=== PATIENT | male | born 1940 | race Caucasian/White ===

== ENCOUNTER → 2016-07-15 | Outpatient (CLI) | payer OTHER ==
[~2016-07-15] MED LIST: ACETAMINOPHEN &1 TA1 PO; ALBUTEROL0.09 MG/A1 INH; AMLODIPINE BESYL5 MG PO; ANALGESIC TP; ANUSOL-HC25 MG R; ASPI-COR81 MG PO; ATIVAN1 MG PO; BACTRIM DS 8001 TA1 PO; BENGAY ARTHRITI1 CRE T; CIPRO500 MG PO; CLARITIN10 MG PO; DAYPRO600 M1 PO; DONEPEZIL HYDRO10 MG PO; ELIMITE5% T; FLAGYL500 MG PO; GLIPIZIDE XL5 M1 PO; HCTZ/LISINOPRIL1 TA1 PO; HYDR1000 IM; INDOCIN50 MG PO; KEFLEX500 MG PO; LEVAQUIN750 MG PO; LEVITRA20 MG PO; LISINOPRIL/HCTZ1 TA3 PO; METFORMIN500 MG PO; MUCINEX600 MG PO; NAPROXEN500 M1 PO; NASAREL1 EA NAS; NEURONTIN300 MG PO; OMEPRAZOLE20 MG PO; PANTOPRAZOLE SO20 MG PO; PLAVIX75 MG PO; PRAVASTATIN SOD40 MG PO; PREDNISONE10 MG PO; PREDNISONE20 M1 PO; SIMVASTATIN40 MG PO; SYNTHROID PO; Synthroid,Levo50 MCG PO; TAMSULOSIN HCL0.4 MG PO; VENTOLIN H0.09 MG/AC INH; VIAGRA100 MG PO; VICODIN 5/500 505 MG PO; VICODIN 500 MG-1 TAB PO; VICODIN ES 7501 TAB PO; ZITHROMAX Z PA250 MG PO; ZITHROMAX250 MG PO; ZOCOR40 MG PO; ZOFRAN4 MG PO
[2016-07-15 11:09] LABS: BUN 19 mg/dl (7-24); EST GLOM FILT AFRICAN AMERICAN > 60 ml/min
== END | disposition home or self-care (01) ==
LOC: LAB 10:44 → CT 11:00
PROVIDERS: Family Medicine
DX: R91.1 Solitary pulmonary nodule (principal); E11.9 Type 2 diabetes mellitus without complications; Z87.891 Personal history of nicotine dependence

== ENCOUNTER → 2017-05-20 | Outpatient (CLI) | payer OTHER | END | disposition home or self-care (01) | LOC: RAD 09:37 | DX: M25.561 Pain in right knee (principal) ==

== ENCOUNTER → 2017-07-27 | Outpatient (CLI) | payer OTHER | END | disposition home or self-care (01) | LOC: LAB 13:39 | DX: R19.7 Diarrhea, unspecified (principal) ==

== ENCOUNTER 2017-09-08 14:45 | Emergency (ER) | payer OTHER ==
[~2017-09-08] VITALS: Wt 90.7 kg
[2017-09-08] MEDS ORDERED: SERTRALINE HYDR50 MG PO (14:55)
[2017-09-08] MEDS ORDERED: DONEPEZIL HCL10 MG PO (14:56)
[2017-09-08] MEDS ORDERED: ZESTORETIC 20-1 EACH PO (14:56)
[2017-09-08] MEDS ORDERED: CARDIOVID PLUS1 EACH PO (14:57)
[2017-09-08] MEDS ORDERED: REFRESH OPTIVE1 EAC1 OP (14:57)
[2017-09-08] MEDS ORDERED: ALPRAZOLAM1 M2 PO (15:21)
[2017-09-08] MEDS ORDERED: NARCAN4 MG NAS (15:21)
[2017-09-08 15:24] LABS: BILIRUBIN NEGATIVE (NEGATIVE); BLOOD NEGATIVE (NEGATIVE); CLARITY CLEAR (CLEAR); COLOR YELLOW (YELLOW); GLUCOSE NEGATIVE (NEGATIVE); KETONE NEGATIVE (NEGATIVE); LEUKO ESTERASE NEGATIVE (NEGATIVE); NITRITE NEGATIVE (NEGATIVE); SPECIFIC GRAVITY >= 1.030 (1.005-1.030); UROBILINOGEN 0.2 E.U./dl (0.2-1.0)
[2017-09-08 15:53] LABS: BASO % 0.4 % (0.0-1.0); EOS # 0.3 10*3/uL (0.0-0.4); EOS % 3.2 % (1.0-4.0); HEMATOCRIT 42.9 % (42.0-52.0); HEMOGLOBIN 14.1 g/dl (14.0-18.0); LYMPH # 2.1 10*3/uL (1.3-4.4); LYMPH % 25.4 % (27.0-41.0); MEAN CELL VOLUME 90.3 fl (80.0-94.0); MEAN CORPUSCULAR HGB 29.7 pg (27.0-31.0); MEAN CORPUSCULAR HGB CONC 32.9 g/dl (33.0-37.0); MEAN PLATELET VOLUME 9.8 fl (9.6-12.3); MONO # 0.6 10*3/uL (0.1-1.0); MONO % 6.8 % (3.0-9.0); NEUT # 5.2 10*3/uL (2.3-7.9); NEUT % 63.8 % (47.0-73.0); PLATELET COUNT AUTOMATED 193 10*3/uL (130-400); RED BLOOD COUNT 4.75 10*6/uL (4.50-5.90); RED CELL DISTRI WIDTH 14.7 % (0-14.5); WHITE BLOOD COUNT 8.1 10*3/uL (4.8-10.8)
[2017-09-08 16:04] LABS: ACT PARTIAL THROMBO TIME 23.9 SECONDS (20.8-31.5)
[2017-09-08 16:09] LABS: ALKALINE PHOSPHATASE 75 U/L (45-117); BUN 18 mg/dl (7-24); CHLORIDE 110 mmol/L (98-107); CREATININE 0.85 mg/dL (0.70-1.30); LIPASE 175 U/L (73-393); POTASSIUM 4.1 mmol/L (3.5-5.1); SGOT/AST 29 IU/L (3-35); SGPT/ALT 51 U/L (12-78); SODIUM 141 mmol/L (136-145); TOTAL PROTEIN 7.3 gm/dL (6.4-8.2); TROPONIN I < 0.015 ng/ml (<0.045)
[2017-09-08 20:02] VITALS: BP 127/51
== END 2017-09-08 20:32 | disposition home or self-care (01) ==
LOC: ED 14:45
PROVIDERS: Emergency Medicine
DX: G45.9 Transient cerebral ischemic attack, unspecified (principal); J44.9 Chronic obstructive pulmonary disease, unspecified; Z88.6 Allergy status to analgesic agent; Z79.899 Other long term (current) drug therapy

== ENCOUNTER → 2017-09-09 | Outpatient (CLI) | payer OTHER ==
[~2017-09-09] MED LIST changes: +ALPRAZOLAM1 M2 PO; +CARDIOVID PLUS1 EACH PO; +DONEPEZIL HCL10 MG PO; +LEVOXYL150 MCG PO; +NARCAN4 MG NAS; +REFRESH OPTIVE1 EAC1 OP; +SERTRALINE HYDR50 MG PO; +ZESTORETIC 20-1 EACH PO
== END | disposition home or self-care (01) ==
LOC: MRI 11:00
DX: G31.9 Degenerative disease of nervous system, unspecified (principal); I69.911 Memory deficit following unspecified cerebrovascular disease; H53.2 Diplopia; R53.1 Weakness

== ENCOUNTER 2017-10-01 11:10 | Emergency (ER) | payer OTHER ==
[~2017-10-01] VITALS: Ht 167.6 cm; Wt 91.2 kg
[~2017-10-01 11:10] MED LIST changes: -LEVOXYL150 MCG PO
[2017-10-01] MEDS ORDERED: LEVOXYL150 MCG PO (11:25)
[2017-10-01 11:27] LABS: BASO % 0.1 % (0.0-1.0); EOS # 0.2 10*3/uL (0.0-0.4); EOS % 2.8 % (1.0-4.0); HEMOGLOBIN 12.9 g/dl (14.0-18.0); LYMPH # 1.8 10*3/uL (1.3-4.4); LYMPH % 26.5 % (27.0-41.0); MEAN CORPUSCULAR HGB CONC 32.3 g/dl (33.0-37.0); MEAN PLATELET VOLUME 10.1 fl (9.6-12.3); MONO # 0.5 10*3/uL (0.1-1.0); MONO % 6.6 % (3.0-9.0); NEUT # 4.4 10*3/uL (2.3-7.9); NEUT % 63.6 % (47.0-73.0); PLATELET COUNT AUTOMATED 160 10*3/uL (130-400); RED CELL DISTRI WIDTH 15.5 % (0-14.5); WHITE BLOOD COUNT 6.9 10*3/uL (4.8-10.8)
[2017-10-01 11:43] VITALS: BP 139/64
[2017-10-01 11:43] LABS: ALBUMIN 3.9 gm/dl (3.1-4.5); ALKALINE PHOSPHATASE 70 U/L (45-117); BUN 19 mg/dl (7-24); CHLORIDE 107 mmol/L (98-107); CREATININE 1.04 mg/dL (0.70-1.30); POTASSIUM 3.9 mmol/L (3.5-5.1); SGOT/AST 21 IU/L (3-35); SGPT/ALT 34 U/L (12-78); SODIUM 141 mmol/L (136-145); TOTAL PROTEIN 7.1 gm/dL (6.4-8.2)
[2017-10-01 11:49] LABS: TROPONIN I < 0.015 ng/ml (<0.045)
== END 2017-10-01 12:36 | disposition home or self-care (01) ==
LOC: ED 11:10
PROVIDERS: Emergency Medicine
DX: R00.1 Bradycardia, unspecified (principal); Z86.73 Personal history of transient ischemic attack (TIA), and cerebral infarction without residual deficits; Z98.890 Other specified postprocedural states; Z79.899 Other long term (current) drug therapy; Z88.5 Allergy status to narcotic agent

== ENCOUNTER 2017-10-09 19:16 | Emergency (ER) | payer BC, OTHER ==
[~2017-10-09] VITALS: Ht 167.6 cm; Wt 91.2 kg
[~2017-10-09 19:16] MED LIST changes: +LEVOXYL150 MCG PO
[2017-10-09 19:18] VITALS: BP 176/71
== END 2017-10-09 20:44 | disposition home or self-care (01) ==
LOC: ED 19:16
DX: S96.911A Strain of unspecified muscle and tendon at ankle and foot level, right foot, initial encounter (principal); M77.31 Calcaneal spur, right foot; Z98.890 Other specified postprocedural states; Z79.899 Other long term (current) drug therapy; Z88.5 Allergy status to narcotic agent; V29.3XXA Motorcycle rider (driver) (passenger) injured in unspecified nontraffic accident, initial encounter; Y93.55 Activity, bike riding; Y92.413 State road as the place of occurrence of the external cause; Y99.9 Unspecified external cause status

== ENCOUNTER 2017-11-02 22:30 | Inpatient (IN) | payer OTHER ==
[~2017-11-02] VITALS: Ht 171.4 cm; Wt 91.2 kg
--- NOTE | ~2017-11-02 | PR ---
[place], [place] PROGRESS NOTE NAME: MEGHANA CLINTON UNIT #: [id number] ROOM: 402 DOCTOR: CHRISTAL GILL MD BIRTHDATE: [birth year] DOS: 11/04/2017 SUBJECTIVE: The patient was seen in the Cardiology Department today 11/04/2017 prior to his stress test. He is a 77-year-old man, typically followed by the [facility]. He has been known to have bradycardia and recently was referred for [facility]. Despite his bradycardia he has not had symptoms of lightheadedness or syncope. He was noted at the local [facility] yesterday to have severe hypertension and some chest discomfort. He was therefore sent to the hospital and we were asked to assist in his assessment. Overnight, he has felt well. He denies any chest discomfort and is breathing easily. Serial troponin levels have all been normal. A TSH level was normal at 2.43. Review of his monitor strips show that he does have sinus bradycardia with a heart rate of about 40-50, but no pauses. PHYSICAL EXAMINATION: VITAL SIGNS: Today, his pulse is 40 and regular, blood pressure is 196/66. He is afebrile. He weighs 91.2 kg and has a body mass index of 31.1. NECK: Supple. He has no jugular distention. Carotids are full. I heard no bruits. He had no neck or supraclavicular masses. LUNGS: Respirations were unlabored. His chest was clear to auscultation and percussion. HEART: Had ____, but slow rhythm. He had a fourth heart sound, but no third heart sound. ABDOMEN: Soft and normally active. EXTREMITIES: Showed no edema. IMPRESSION: 1. Hypertensive urgency. 2. Sinus bradycardia, most likely due to a conduction system disorder, despite the degree of his bradycardia he appears to be asymptomatic. 3. Atypical chest discomfort. PLAN: We will proceed with a pharmacologic stress test and echocardiogram today. Further recommendations will depend upon the results of his studies. In the interim, we should work to improve blood pressure control, but avoid rate slowing medications. I thank the hospitalist physicians for asking our advice regarding his care. [place], [place] PROGRESS NOTE NAME: MEGHANA CLINTON UNIT #: [id number] ROOM: 402 DOCTOR: CHRISTAL GILL MD BIRTHDATE: [birth year] CHRISTAL GILL MD CM:PNTRANS [id number] CHRISTAL GILL MD 11/04/17 1215 interface
--- NOTE | ~2017-11-02 | EKG ---
[place], [place] ELECTROCARDIOGRAM REPORT NAME: MEGHANA CLINTON UNIT #: [id number] ROOM: 402 DOCTOR: RODRIGUEZ DRAFT REPORT BIRTHDATE: [address] 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
--- NOTE | ~2017-11-02 | EKG ---
[place], [place] ELECTROCARDIOGRAM REPORT NAME: MEGHANA CLINTON UNIT #: [id number] ROOM: 402 DOCTOR: RODRIGUEZ DRAFT REPORT BIRTHDATE: [birth year] [facility] Test Date: 2017-11-02 Test Time: 22:41:42 Pat Name: MEGHANA CLINTON Department: Room: Gender: [employer]: : 1940 Requested By: TRINA LEO Order Number: [id number] Reading MD: Prosper Jordan MD Measurements Intervals [place] Rate: 39 P: 69 UT: 172 QRS: 33 QRSD: 102 T: 66 QT: 524 QTc: 423 Interpretive Statements Sinus bradycardia RSR' in V1 or V2, right VCD or RVH No change from earlier ECG this date. Electronically Signed On 11-03-2017 20:46:14 PDT by Prosper Jordan MD CM:EKGRPT:ELECTROCARDIOGRAM REPORT 45 TRINA PETERS DRAFT REPORT TRINA LEO DO
--- NOTE | ~2017-11-02 | EKG ---
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 Electronically Signed On 11-03-2017 4:29:42 PDT by Prosper Jordan MD CM:EKGRPT:ELECTROCARDIOGRAM REPORT 0429 TRINA PETERS DRAFT REPORT TRINA LEO DO
--- NOTE | ~2017-11-02 | CON ---
[place], [place] REPORT OF CONSULTATION [id number] UNIT #: [id number] ROOM: 402 DOCTOR: CHRISTAL GILL MD BIRTHDATE: [birth year] DOS: 11/04/2017 ADDENDUM I saw the patient on 11/03/[address] Internal Medicine resident Dr. Lisandro Simon. He is a 77-year-old man who presented to the Emergency Room with chest pain and bradycardia. He is typically followed for his cardiac issues by the [facility] and his workup with them is in process. I independently evaluated and confirmed appropriate portions of the patient's history and examination and discussed my findings with the patient as well as with Dr. Simon. I reviewed her documentation from 11/03/2017 and I agree with the assessment and plan as she has outlined it. IMPRESSION: 1. Atypical chest pain. 2. Bradycardia, likely due to an underlying conduction system disorder. This appears to be asymptomatic. 3. Hypertensive urgency. 4. Chronic obstructive pulmonary disease. PLAN: We will evaluate the patient's cardiac structures with an echocardiogram and plan for a pharmacologic stress test within the next 24 hours. We have requested records from the [facility]. Further recommendations will depend upon the results of testing. We thank the hospitalist physicians for asking our advice regarding his care. CHRISTAL GILL MD CM:CONSTR:REPORT OF CONSULTATION 1101 11/05/17 1818 interface
[2017-11-02 22:35] VITALS: BP 181/74
[2017-11-02 23:04] VITALS: BP 182/70
[2017-11-02 23:28] VITALS: BP 160/68
[2017-11-02 23:40] LABS: BASO % 0.3 % (0.0-1.0); EOS # 0.3 10*3/uL (0.0-0.4); EOS % 3.1 % (1.0-4.0); HEMATOCRIT 37.1 % (42.0-52.0); HEMOGLOBIN 12.2 g/dl (14.0-18.0); LYMPH # 2.4 10*3/uL (1.3-4.4); LYMPH % 30.3 % (27.0-41.0); MEAN CELL VOLUME 91.4 fl (80.0-94.0); MEAN CORPUSCULAR HGB CONC 32.9 g/dl (33.0-37.0); MONO # 0.6 10*3/uL (0.1-1.0); MONO % 7.3 % (3.0-9.0); NEUT # 4.7 10*3/uL (2.3-7.9); NEUT % 58.6 % (47.0-73.0); PLATELET COUNT AUTOMATED 139 10*3/uL (130-400); RED BLOOD COUNT 4.06 10*6/uL (4.50-5.90); RED CELL DISTRI WIDTH 14.3 % (0-14.5)
[2017-11-02 23:49] LABS: ACT PARTIAL THROMBO TIME 23.5 SECONDS (20.8-31.5)
[2017-11-02 23:57] LABS: ALBUMIN 3.9 gm/dl (3.1-4.5); ALKALINE PHOSPHATASE 81 U/L (45-117); BUN 17 mg/dl (7-24); CHLORIDE 107 mmol/L (98-107); CREATININE 1.07 mg/dL (0.70-1.30); POTASSIUM 3.6 mmol/L (3.5-5.1); SGOT/AST 20 IU/L (3-35); SGPT/ALT 33 U/L (12-78); SODIUM 140 mmol/L (136-145); TOTAL PROTEIN 7.1 gm/dL (6.4-8.2)
[2017-11-03] VITALS (9 sets, daily range): BP systolic 142–196; BP diastolic 50–88
[2017-11-03 00:01] LABS: TROPONIN I < 0.015 ng/ml (<0.045)
[2017-11-03 05:25] LABS: ALBUMIN 3.8 gm/dl (3.1-4.5); BUN 16 mg/dl (7-24); CHLORIDE 106 mmol/L (98-107); CHOLESTEROL 124 mg/dL (<200); CREATININE 1.02 mg/dL (0.70-1.30); HDL CHOLESTEROL 25 mg/dl (40-60); LDL CHOLESTEROL 62 mg/dL (9-159); PHOSPHOROUS 3.3 mg/dL (2.5-4.9); POTASSIUM 3.5 mmol/L (3.5-5.1); SODIUM 141 mmol/L (136-145); TRIGLYCERIDES 183 mg/dl (<150); VLDL CHOLESTEROL 37 mg/dL (6-40)
[2017-11-03 06:02] LABS: BASO % 0.3 % (0.0-1.0); EOS # 0.2 10*3/uL (0.0-0.4); EOS % 3.4 % (1.0-4.0); HEMATOCRIT 37.2 % (42.0-52.0); HEMOGLOBIN 12.1 g/dl (14.0-18.0); LYMPH # 1.9 10*3/uL (1.3-4.4); LYMPH % 29.9 % (27.0-41.0); MEAN CELL VOLUME 92.1 fl (80.0-94.0); MEAN CORPUSCULAR HGB CONC 32.5 g/dl (33.0-37.0); MEAN PLATELET VOLUME 11.4 fl (9.6-12.3); MONO # 0.4 10*3/uL (0.1-1.0); MONO % 6.8 % (3.0-9.0); NEUT # 3.8 10*3/uL (2.3-7.9); NEUT % 59.3 % (47.0-73.0); PLATELET COUNT AUTOMATED 134 10*3/uL (130-400); RED BLOOD COUNT 4.04 10*6/uL (4.50-5.90); RED CELL DISTRI WIDTH 14.3 % (0-14.5); WHITE BLOOD COUNT 6.5 10*3/uL (4.8-10.8)
[2017-11-03 07:22] LABS: VITAMIN D, 25-HYDROXY 26.8 ng/mL (30-100)
[2017-11-04] VITALS (7 sets, daily range): BP systolic 162–196; BP diastolic 58–78
[2017-11-04 08:02] LABS: BUN 20 mg/dl (7-24); CHLORIDE 106 mmol/L (98-107); POTASSIUM 4.1 mmol/L (3.5-5.1); SODIUM 143 mmol/L (136-145)
[2017-11-04 08:04] LABS: CREATININE 1.01 mg/dL (0.70-1.30); PHOSPHOROUS 2.9 mg/dL (2.5-4.9)
[2017-11-04] MEDS ORDERED: VITAMIN D-32000 UNIT PO (15:53)
== END 2017-11-04 17:26 | disposition home or self-care (01) | DRG 392 ==
LOC: ED 22:30 → 4E 11-03 00:08 → EDHOLD 11-03 00:08 → 4E 11-03 00:26
PROVIDERS: Internal Medicine; Student in an Organized Health Care Education/Training Program
DX: K21.9 Gastro-esophageal reflux disease without esophagitis (principal); E11.8 Type 2 diabetes mellitus with unspecified complications; J44.9 Chronic obstructive pulmonary disease, unspecified; I16.1 Hypertensive emergency; R00.1 Bradycardia, unspecified; E83.41 Hypermagnesemia; E66.01 Morbid (severe) obesity due to excess calories; E83.51 Hypocalcemia; D50.9 Iron deficiency anemia, unspecified; E78.5 Hyperlipidemia, unspecified; E53.8 Deficiency of other specified B group vitamins; F41.9 Anxiety disorder, unspecified; I10 Essential (primary) hypertension; I16.0 Hypertensive urgency; N40.0 Benign prostatic hyperplasia without lower urinary tract symptoms; E03.9 Hypothyroidism, unspecified; Z79.84 Long term (current) use of oral hypoglycemic drugs; Z88.5 Allergy status to narcotic agent; Z91.09 Other allergy status, other than to drugs and biological substances; Z82.3 Family history of stroke; Z80.9 Family history of malignant neoplasm, unspecified; Z86.73 Personal history of transient ischemic attack (TIA), and cerebral infarction without residual deficits; Z83.6 Family history of other diseases of the respiratory system; Z79.899 Other long term (current) drug therapy; Z68.31 Body mass index [BMI] 31.0-31.9, adult; Z79.82 Long term (current) use of aspirin

== ENCOUNTER → 2018-05-27 | Outpatient (CLI) | payer OTHER ==
[~2018-05-27] MED LIST changes: +VITAMIN D-32000 UNIT PO
== END | disposition home or self-care (01) ==
LOC: CT 13:00
DX: M19.071 Primary osteoarthritis, right ankle and foot (principal); M79.89 Other specified soft tissue disorders

== ENCOUNTER → 2019-05-17 | Outpatient (CLI) | payer OTHER ==
[2019-05-17 16:26] LABS: BASO % 0.4 % (0.0-1.0); EOS # 0.2 10*3/uL (0.0-0.4); HEMATOCRIT 39.6 % (42.0-52.0); HEMOGLOBIN 13.4 g/dl (14.0-18.0); LYMPH # 2.1 10*3/uL (1.3-4.4); LYMPH % 27.9 % (27.0-41.0); MEAN CELL VOLUME 92.1 fl (80.0-94.0); MEAN CORPUSCULAR HGB 31.2 pg (27.0-31.0); MEAN CORPUSCULAR HGB CONC 33.8 g/dl (33.0-37.0); MEAN PLATELET VOLUME 10.3 fl (9.6-12.3); MONO # 0.5 10*3/uL (0.1-1.0); MONO % 5.9 % (3.0-9.0); NEUT # 4.7 10*3/uL (2.3-7.9); NEUT % 62.4 % (47.0-73.0); PLATELET COUNT AUTOMATED 237 10*3/uL (130-400); RED CELL DISTRI WIDTH 15.4 % (0-14.5); RETICULOCYTE % 3.02 % (0.50-2.50); WHITE BLOOD COUNT 7.6 10*3/uL (4.8-10.8)
[2019-05-17 16:44] LABS: BILIRUBIN NEGATIVE (NEGATIVE); BLOOD NEGATIVE (NEGATIVE); CLARITY CLEAR (CLEAR); COLOR YELLOW (YELLOW); GLUCOSE NEGATIVE (NEGATIVE); KETONE NEGATIVE (NEGATIVE); LEUKO ESTERASE NEGATIVE (NEGATIVE); NITRITE NEGATIVE (NEGATIVE); SPECIFIC GRAVITY 1.025 (1.005-1.030); UROBILINOGEN 0.2 E.U./dl (0.2-1.0)
[2019-05-17 16:45] LABS: BACTERIA TRACE
[2019-05-17 16:54] LABS: ALBUMIN 4.2 gm/dl (3.1-4.5); ALKALINE PHOSPHATASE 87 U/L (45-117); BUN 19 mg/dl (7-24); CHLORIDE 107 mmol/L (98-107); CHOLESTEROL 193 mg/dL (<200); CREATININE 1.17 mg/dL (0.70-1.30); GAMMA GLUTAMYL TRANSPEPTIDASE 24 U/L (15-85); HDL CHOLESTEROL 21 mg/dl (40-60); IRON 77 ug/dL (65-175); POTASSIUM 3.8 mmol/L (3.5-5.1); SGOT/AST 37 IU/L (3-35); SODIUM 138 mmol/L (136-145); TOTAL IRON BINDING CAPACITY 377 ug/dl (250-450); TRIGLYCERIDES 858 mg/dl (<150)
[2019-05-17 17:02] LABS: URIC ACID 5.2 mg/dL (3.5-7.2)
[2019-05-17 17:05] LABS: VITAMIN D, 25-HYDROXY 25.1 ng/mL (30-100)
[2019-05-17 17:06] LABS: FERRITIN 79.9 ng/mL (22.0-322.0)
[2019-05-17 17:07] LABS: SGPT/ALT 46 U/L (12-78); TOTAL PROTEIN 7.4 gm/dL (6.4-8.2)
[2019-05-18 08:10] LABS: RHEUMATOID ARTHRITIS FACTOR 10.2 IU/mL (0.0-13.9)
[2019-05-18 12:06] LABS: ANTI-DSDNA ANTIBODIES 096339 4 IU/mL (0-9)
== END ==
LOC: LAB 15:43
PROVIDERS: Family Medicine
DX: R79.89 Other specified abnormal findings of blood chemistry (principal); E55.9 Vitamin D deficiency, unspecified; Z79.899 Other long term (current) drug therapy; Z12.5 Encounter for screening for malignant neoplasm of prostate

== ENCOUNTER → 2019-06-13 | Outpatient (CLI) | payer OTHER ==
[2019-06-13 07:57] LABS: BASO % 0.4 % (0.0-1.0); EOS # 0.3 10*3/uL (0.0-0.4); EOS % 4.4 % (1.0-4.0); HEMATOCRIT 41.4 % (42.0-52.0); HEMOGLOBIN 13.2 g/dl (14.0-18.0); LYMPH # 2.1 10*3/uL (1.3-4.4); LYMPH % 29.1 % (27.0-41.0); MEAN CELL VOLUME 94.1 fl (80.0-94.0); MEAN CORPUSCULAR HGB CONC 31.9 g/dl (33.0-37.0); MEAN PLATELET VOLUME 10.6 fl (9.6-12.3); MONO # 0.6 10*3/uL (0.1-1.0); MONO % 7.9 % (3.0-9.0); NEUT # 4.3 10*3/uL (2.3-7.9); NEUT % 57.8 % (47.0-73.0); PLATELET COUNT AUTOMATED 182 10*3/uL (130-400); RED CELL DISTRI WIDTH 14.7 % (0-14.5); WHITE BLOOD COUNT 7.4 10*3/uL (4.8-10.8)
[2019-06-13 08:07] LABS: ACT PARTIAL THROMBO TIME 26.5 SECONDS (20.0-32.1)
[2019-06-13 08:34] LABS: CREATININE 1.42 mg/dL (0.70-1.30); POTASSIUM 3.5 mmol/L (3.5-5.1); TOTAL PROTEIN 7.3 gm/dL (6.4-8.2)
[2019-06-13 18:10] LABS: BILIRUBIN NEGATIVE (NEGATIVE); BLOOD NEGATIVE (NEGATIVE); CLARITY CLEAR (CLEAR); COLOR YELLOW (YELLOW); GLUCOSE NEGATIVE (NEGATIVE); KETONE NEGATIVE (NEGATIVE); LEUKO ESTERASE NEGATIVE (NEGATIVE); NITRITE NEGATIVE (NEGATIVE); UROBILINOGEN 0.2 E.U./dl (0.2-1.0)
[2019-06-13 18:16] LABS: BACTERIA TRACE; EPITHELIAL CELLS 0-2; RBC 0-2 rbc/hpf (0-2); WBC 0-2 wbc/hpf (0-5)
== END | disposition home or self-care (01) ==
LOC: CARD 02:26 → LAB 02:26 → CARD 08:30
PROVIDERS: Internal Medicine Cardiovascular Disease; Urology
DX: I20.9 Angina pectoris, unspecified (principal); E11.9 Type 2 diabetes mellitus without complications; R06.02 Shortness of breath; R53.81 Other malaise

== ENCOUNTER 2019-10-29 15:25 | Inpatient (IN) | payer MEDICARE ==
[~2019-10-29] VITALS: Ht 170.2 cm; Wt 95.3 kg
[2019-10-29 15:34] VITALS: BP 89/51
[2019-10-29] MEDS ORDERED: NEURONTIN300 MG PO (15:44)
[2019-10-29] MEDS ORDERED: PRAVASTATIN SOD80 MG PO (15:44)
[2019-10-29] MEDS ORDERED: B121000 MCG/1 IM (15:45)
[2019-10-29] MEDS ORDERED: PROVENTIL HFA6.7 GM INH (15:46)
[2019-10-29] MEDS ORDERED: PANTOPRAZOLE SO20 MG PO (15:47)
[2019-10-29] MEDS ORDERED: NORCO 5-325 TA1 EACH PO (15:47)
[2019-10-29] MEDS ORDERED: TAMSULOSIN HCL0.4 MG PO (15:48)
[2019-10-29] MEDS ORDERED: SILDENAFIL CIT100 MG PO (15:49)
[2019-10-29] MEDS ORDERED: GLIPIZIDE XL5 M1 PO (15:50)
[2019-10-29] MEDS ORDERED: ZESTORETIC 20-1 EACH PO (15:50)
[2019-10-29] MEDS ORDERED: SERTRALINE HYDR50 MG PO (15:50)
[2019-10-29] MEDS ORDERED: DONEPEZIL HCL10 MG PO (15:51)
[2019-10-29] MEDS ORDERED: REFRESH OPTIVE1 EAC1 OP (15:51)
[2019-10-29] MEDS ORDERED: VITAMIN D350 MCG PO (15:52)
[2019-10-29] MEDS ORDERED: ALPRAZOLAM1 M2 PO (15:52)
[2019-10-29 16:18] LABS: BASO % 0.3 % (0.0-1.0); EOS # 0.3 10*3/uL (0.0-0.4); EOS % 3.5 % (1.0-4.0); HEMATOCRIT 36.3 % (42.0-52.0); LYMPH # 1.9 10*3/uL (1.3-4.4); LYMPH % 19.8 % (27.0-41.0); MEAN CELL VOLUME 89.6 fl (80.0-94.0); MEAN CORPUSCULAR HGB 29.9 pg (27.0-31.0); MEAN CORPUSCULAR HGB CONC 33.3 g/dl (33.0-37.0); MEAN PLATELET VOLUME 9.8 fl (9.6-12.3); MONO # 0.7 10*3/uL (0.1-1.0); MONO % 7.4 % (3.0-9.0); NEUT # 6.5 10*3/uL (2.3-7.9); NEUT % 68.5 % (47.0-73.0); PLATELET COUNT AUTOMATED 190 10*3/uL (130-400); RED BLOOD COUNT 4.05 10*6/uL (4.50-5.90); RED CELL DISTRI WIDTH 14.4 % (0-14.5); WHITE BLOOD COUNT 9.4 10*3/uL (4.8-10.8)
[2019-10-29 16:34] LABS: ALBUMIN 3.6 gm/dl (3.1-4.5); ALKALINE PHOSPHATASE 84 U/L (45-117); BUN 42 mg/dl (7-24); CHLORIDE 104 mmol/L (98-107); CREATININE 2.33 mg/dL (0.70-1.30); POTASSIUM 3.8 mmol/L (3.5-5.1); SGOT/AST 33 IU/L (3-35); SODIUM 134 mmol/L (136-145); TOTAL PROTEIN 6.9 gm/dL (6.4-8.2)
[2019-10-29 16:38] LABS: SGPT/ALT 45 U/L (12-78)
[2019-10-29 16:40] LABS: TROPONIN I < 0.015 ng/ml (<0.045)
[2019-10-29 18:03] VITALS: BP 102/56
[2019-10-29 19:52] VITALS: BP 111/57
[2019-10-29 21:09] VITALS: BP 118/67
[2019-10-29 21:40] VITALS: BP 125/69
[2019-10-30] VITALS: BP 129/67
[2019-10-30 02:00] VITALS: BP 144/74
[2019-10-30 06:58] LABS: BASO % 0.3 % (0.0-1.0); EOS # 0.3 10*3/uL (0.0-0.4); EOS % 4.3 % (1.0-4.0); HEMATOCRIT 34.8 % (42.0-52.0); LYMPH # 1.6 10*3/uL (1.3-4.4); LYMPH % 21.8 % (27.0-41.0); MEAN CELL VOLUME 89.9 fl (80.0-94.0); MEAN CORPUSCULAR HGB 30.2 pg (27.0-31.0); MEAN CORPUSCULAR HGB CONC 33.6 g/dl (33.0-37.0); MEAN PLATELET VOLUME 9.7 fl (9.6-12.3); MONO # 0.4 10*3/uL (0.1-1.0); MONO % 5.6 % (3.0-9.0); NEUT # 4.8 10*3/uL (2.3-7.9); NEUT % 67.6 % (47.0-73.0); PLATELET COUNT AUTOMATED 151 10*3/uL (130-400); RED BLOOD COUNT 3.87 10*6/uL (4.50-5.90); RED CELL DISTRI WIDTH 14.6 % (0-14.5); WHITE BLOOD COUNT 7.2 10*3/uL (4.8-10.8)
[2019-10-30 07:23] LABS: CREATININE 1.69 mg/dL (0.70-1.30); POTASSIUM 3.7 mmol/L (3.5-5.1)
[2019-10-30 08:00] VITALS: BP 142/72
[2019-10-30 12:00] VITALS: BP 139/77
[2019-10-30] MEDS ORDERED: FINASTERIDE5 M1 PO (12:37)
[2019-10-30] MEDS ORDERED: SYNTHROID137 MCG PO (12:41)
[2019-10-30] MEDS ORDERED: LYRICA100 M1 PO (12:44)
[2019-10-30] MEDS ORDERED: ALPRAZOLAM1 M2 PO (12:48)
[2019-10-30] MEDS ORDERED: DICLOFENAC SOD75 MG PO (12:50)
[2019-10-30] MEDS ORDERED: HYDROCODONE-AC1 EACH PO (12:53)
[2019-10-30] MEDS ORDERED: CLARITIN10 MG PO (12:54)
[2019-10-30] MEDS ORDERED: TRAZODONE50 MG PO (12:59)
[2019-10-30] MEDS ORDERED: NAMENDA10 MG PO (13:00)
[2019-10-30 16:00] VITALS: BP 146/74
[2019-10-30 20:00] VITALS: BP 121/63
[2019-10-31] VITALS: BP 141/71
[2019-10-31 08:00] VITALS: BP 150/79
[2019-10-31 08:42] LABS: BASO % 0.5 % (0.0-1.0); EOS # 0.3 10*3/uL (0.0-0.4); EOS % 4.4 % (1.0-4.0); HEMATOCRIT 35.8 % (42.0-52.0); LYMPH # 2.1 10*3/uL (1.3-4.4); LYMPH % 33.3 % (27.0-41.0); MEAN CELL VOLUME 89.5 fl (80.0-94.0); MEAN CORPUSCULAR HGB 29.5 pg (27.0-31.0); MEAN PLATELET VOLUME 9.6 fl (9.6-12.3); MONO # 0.4 10*3/uL (0.1-1.0); MONO % 6.3 % (3.0-9.0); NEUT # 3.4 10*3/uL (2.3-7.9); NEUT % 55.2 % (47.0-73.0); PLATELET COUNT AUTOMATED 152 10*3/uL (130-400); RED CELL DISTRI WIDTH 14.3 % (0-14.5); WHITE BLOOD COUNT 6.2 10*3/uL (4.8-10.8)
[2019-10-31 08:53] LABS: CHLORIDE 109 mmol/L (98-107); CREATININE 1.26 mg/dL (0.70-1.30); SODIUM 137 mmol/L (136-145)
[2019-10-31 09:00] LABS: BUN 21 mg/dl (7-24)
[2019-10-31 10:38] LABS: BILIRUBIN NEGATIVE (NEGATIVE); BLOOD NEGATIVE (NEGATIVE); CLARITY CLEAR (CLEAR); COLOR YELLOW (YELLOW); GLUCOSE TRACE (NEGATIVE); KETONE NEGATIVE (NEGATIVE); LEUKO ESTERASE NEGATIVE (NEGATIVE); NITRITE NEGATIVE (NEGATIVE); SPECIFIC GRAVITY 1.015 (1.005-1.030); UROBILINOGEN 0.2 E.U./dl (0.2-1.0)
[2019-10-31 10:54] LABS: BACTERIA TRACE; EPITHELIAL CELLS 0-2; MUCOUS 1+; RBC 0-2 rbc/hpf (0-2); WBC 0-2 wbc/hpf (0-5)
[2019-10-31 12:00] VITALS: BP 156/72
[2019-10-31] MEDS ORDERED: LISINOPRIL5 MG PO (15:39)
== END 2019-10-31 15:44 | disposition home or self-care (01) | DRG 314 ==
LOC: ED 15:25 → 5E 20:27 → EDHOLD 20:27 → 5E 20:44
PROVIDERS: Internal Medicine; Physician Assistant; Student in an Organized Health Care Education/Training Program; ADMIT Emergency Medicine
DX: I95.9 Hypotension, unspecified (principal); N17.0 Acute kidney failure with tubular necrosis; E87.1 Hypo-osmolality and hyponatremia; D72.810 Lymphocytopenia; D64.9 Anemia, unspecified; E87.8 Other disorders of electrolyte and fluid balance, not elsewhere classified; R00.1 Bradycardia, unspecified; E53.8 Deficiency of other specified B group vitamins; E86.0 Dehydration; F41.9 Anxiety disorder, unspecified; I10 Essential (primary) hypertension; N40.1 Benign prostatic hyperplasia with lower urinary tract symptoms; R39.11 Hesitancy of micturition; E03.9 Hypothyroidism, unspecified; H53.8 Other visual disturbances; N40.0 Benign prostatic hyperplasia without lower urinary tract symptoms; E11.65 Type 2 diabetes mellitus with hyperglycemia; E83.41 Hypermagnesemia; E66.01 Morbid (severe) obesity due to excess calories; Z68.32 Body mass index [BMI] 32.0-32.9, adult; Z95.0 Presence of cardiac pacemaker; Z88.6 Allergy status to analgesic agent; Z91.09 Other allergy status, other than to drugs and biological substances; Z87.891 Personal history of nicotine dependence; Z82.5 Family history of asthma and other chronic lower respiratory diseases; Z82.3 Family history of stroke; Z80.8 Family history of malignant neoplasm of other organs or systems; Z86.73 Personal history of transient ischemic attack (TIA), and cerebral infarction without residual deficits; Z79.899 Other long term (current) drug therapy

== ENCOUNTER 2020-01-02 19:34 | Emergency (ER) | payer MEDICARE ==
[~2020-01-02] VITALS: Ht 172.7 cm; Wt 90.7 kg
[~2020-01-02 19:34] MED LIST changes: +B121000 MCG/1 IM; +DICLOFENAC SOD75 MG PO; +FINASTERIDE5 M1 PO; +HYDROCODONE-AC1 EACH PO; +LISINOPRIL5 MG PO; +LYRICA100 M1 PO; +NAMENDA10 MG PO; +NORCO 5-325 TA1 EACH PO; +PRAVASTATIN SOD80 MG PO; +PROVENTIL HFA6.7 GM INH; +SILDENAFIL CIT100 MG PO; +SYNTHROID137 MCG PO; +TRAZODONE50 MG PO; +VITAMIN D350 MCG PO
[2020-01-02 23:54] VITALS: BP 152/85
== END 2020-01-03 00:18 | disposition home or self-care (01) ==
LOC: ED 19:34
DX: S61.411A Laceration without foreign body of right hand, initial encounter (principal); Z88.8 Allergy status to other drugs, medicaments and biological substances; Z79.899 Other long term (current) drug therapy; Z79.2 Long term (current) use of antibiotics; W19.XXXA Unspecified fall, initial encounter; Y93.89 Activity, other specified; Y92.89 Other specified places as the place of occurrence of the external cause; Y99.8 Other external cause status

== ENCOUNTER → 2020-02-29 | Outpatient (CLI) | payer MEDICARE | END | disposition home or self-care (01) | LOC: COVID19 14:47 | PROVIDERS: ATTEND Family Medicine | DX: Z20.828 Contact with and (suspected) exposure to other viral communicable diseases (principal); R69 Illness, unspecified ==

== ENCOUNTER 2020-12-06 15:42 | Emergency (ER) | payer MEDICARE ==
[~2020-12-06] VITALS: Ht 172.7 cm; Wt 86.2 kg
[2020-12-06 16:08] VITALS: BP 90/53
[2020-12-06 17:22] LABS: BASO % 0.3 % (0.0-1.0); EOS # 0.3 10*3/uL (0.0-0.4); EOS % 3.8 % (1.0-4.0); LYMPH # 1.9 10*3/uL (1.3-4.4); LYMPH % 27.5 % (27.0-41.0); MEAN CELL VOLUME 87.4 fl (80.0-94.0); MEAN CORPUSCULAR HGB 28.5 pg (27.0-31.0); MEAN CORPUSCULAR HGB CONC 32.6 g/dl (33.0-37.0); MEAN PLATELET VOLUME 11.1 fl (9.6-12.3); MONO # 0.6 10*3/uL (0.1-1.0); MONO % 8.4 % (3.0-9.0); NEUT # 4.1 10*3/uL (2.3-7.9); NEUT % 59.7 % (47.0-73.0); PLATELET COUNT AUTOMATED 171 10*3/uL (130-400); RED BLOOD COUNT 4.35 10*6/uL (4.50-5.90); RED CELL DISTRI WIDTH 14.1 % (0-14.5); WHITE BLOOD COUNT 6.8 10*3/uL (4.8-10.8)
[2020-12-06 17:48] LABS: ALBUMIN 3.7 gm/dl (3.1-4.5); ALKALINE PHOSPHATASE 117 U/L (45-117); BUN 23 mg/dl (7-24); CHLORIDE 102 mmol/L (98-107); CREATININE 1.36 mg/dL (0.70-1.30); POTASSIUM 3.9 mmol/L (3.5-5.1); SGOT/AST 22 IU/L (3-35); SGPT/ALT 30 U/L (12-78); SODIUM 136 mmol/L (136-145)
[2020-12-06 17:50] LABS: TROPONIN I < 0.015 ng/ml (<0.045)
== END 2020-12-06 18:43 | disposition home or self-care (01) ==
LOC: ED 15:42
PROVIDERS: Physician Assistant
DX: S16.1XXA Strain of muscle, fascia and tendon at neck level, initial encounter (principal); M25.511 Pain in right shoulder; M25.512 Pain in left shoulder; Z88.6 Allergy status to analgesic agent; Z79.899 Other long term (current) drug therapy; Z87.891 Personal history of nicotine dependence; X50.1XXA Overexertion from prolonged static or awkward postures, initial encounter; Y93.89 Activity, other specified; Y92.89 Other specified places as the place of occurrence of the external cause; Y99.8 Other external cause status

== ENCOUNTER → 2021-02-06 | Outpatient (CLI) | payer MEDICARE | END | disposition home or self-care (01) | LOC: COVID19 16:07 | PROVIDERS: ATTEND Podiatrist Foot & Ankle Surgery | DX: Z11.52 Encounter for screening for COVID-19 (principal) ==

== ENCOUNTER 2021-09-19 13:55 | Inpatient (IN) | payer MEDICARE ==
[~2021-09-19] VITALS: Ht 172.7 cm; Wt 76.7 kg
[2021-09-19 14:16] VITALS: BP 130/58
[2021-09-19 14:32] LABS: BASO % 0.1 % (0.0-1.0); EOS # 0.2 10*3/uL (0.0-0.4); HEMATOCRIT 36.1 % (42.0-52.0); LYMPH # 0.9 10*3/uL (1.3-4.4); LYMPH % 12.5 % (27.0-41.0); MEAN CELL VOLUME 87.2 fl (80.0-94.0); MEAN CORPUSCULAR HGB CONC 33.2 g/dl (33.0-37.0); MEAN PLATELET VOLUME 10.2 fl (9.6-12.3); MONO # 0.6 10*3/uL (0.1-1.0); MONO % 7.5 % (3.0-9.0); NEUT # 5.7 10*3/uL (2.3-7.9); NEUT % 77.1 % (47.0-73.0); PLATELET COUNT AUTOMATED 201 10*3/uL (130-400); RED BLOOD COUNT 4.14 10*6/uL (4.50-5.90); RED CELL DISTRI WIDTH 14.6 % (0-14.5); WHITE BLOOD COUNT 7.4 10*3/uL (4.8-10.8)
[2021-09-19 14:45] LABS: ACT PARTIAL THROMBO TIME 29.5 SECONDS (20.0-32.1)
[2021-09-19 14:50] LABS: ALKALINE PHOSPHATASE 101 U/L (45-117); BUN 15 mg/dl (7-24); CHLORIDE 104 mmol/L (98-107); CREATININE 1.15 mg/dL (0.70-1.30); POTASSIUM 3.6 mmol/L (3.5-5.1); SGOT/AST 14 IU/L (3-35); SGPT/ALT 26 U/L (12-78); SODIUM 138 mmol/L (136-145); TOTAL PROTEIN 7.1 gm/dL (6.4-8.2)
[2021-09-19 15:08] VITALS: BP 119/62
[2021-09-19] MEDS ORDERED: HYSINGLA ER20 MG PO (16:24)
[2021-09-19 16:49] VITALS: BP 113/77
[2021-09-19 18:40] VITALS: BP 112/74
[2021-09-19 18:42] VITALS: BP 129/79
[2021-09-19 20:00] VITALS: BP 123/60
[2021-09-20] VITALS: BP 126/59
[2021-09-20 06:18] LABS: BASO % 0.1 % (0.0-1.0); HEMATOCRIT 36.6 % (42.0-52.0); LYMPH # 0.6 10*3/uL (1.3-4.4); LYMPH % 7.6 % (27.0-41.0); MEAN CELL VOLUME 85.3 fl (80.0-94.0); MEAN CORPUSCULAR HGB 29.1 pg (27.0-31.0); MEAN CORPUSCULAR HGB CONC 34.2 g/dl (33.0-37.0); MEAN PLATELET VOLUME 10.5 fl (9.6-12.3); MONO # 0.2 10*3/uL (0.1-1.0); MONO % 2.5 % (3.0-9.0); NEUT # 6.7 10*3/uL (2.3-7.9); NEUT % 88.1 % (47.0-73.0); PLATELET COUNT AUTOMATED 231 10*3/uL (130-400); RED BLOOD COUNT 4.29 10*6/uL (4.50-5.90); WHITE BLOOD COUNT 7.6 10*3/uL (4.8-10.8)
[2021-09-20 06:33] LABS: BUN 22 mg/dl (7-24); CHLORIDE 104 mmol/L (98-107); CHOLESTEROL 123 mg/dL (<200); CREATININE 1.18 mg/dL (0.70-1.30); POTASSIUM 3.7 mmol/L (3.5-5.1); SGOT/AST 14 IU/L (3-35); SODIUM 137 mmol/L (136-145)
[2021-09-20 06:40] LABS: ALKALINE PHOSPHATASE 102 U/L (45-117); LDL CHOLESTEROL 68 mg/dL (9-159); SGPT/ALT 23 U/L (12-78); TOTAL PROTEIN 7.3 gm/dL (6.4-8.2); TRIGLYCERIDES 105 mg/dl (<150)
[2021-09-20 07:57] VITALS: BP 124/67
[2021-09-20 16:00] VITALS: BP 139/62
[2021-09-20 20:00] VITALS: BP 129/56
[2021-09-21] VITALS: BP 127/79
[2021-09-21 05:59] LABS: BUN 30 mg/dl (7-24); CHLORIDE 107 mmol/L (98-107); CREATININE 1.33 mg/dL (0.70-1.30); POTASSIUM 3.6 mmol/L (3.5-5.1); SODIUM 137 mmol/L (136-145)
[2021-09-21 06:40] LABS: BASO % 0.1 % (0.0-1.0); HEMATOCRIT 34.9 % (42.0-52.0); LYMPH # 0.7 10*3/uL (1.3-4.4); LYMPH % 5.9 % (27.0-41.0); MEAN CELL VOLUME 86.8 fl (80.0-94.0); MEAN CORPUSCULAR HGB 29.4 pg (27.0-31.0); MEAN CORPUSCULAR HGB CONC 33.8 g/dl (33.0-37.0); MEAN PLATELET VOLUME 10.5 fl (9.6-12.3); MONO # 0.6 10*3/uL (0.1-1.0); MONO % 5.4 % (3.0-9.0); NEUT # 9.5 10*3/uL (2.3-7.9); NEUT % 86.6 % (47.0-73.0); PLATELET COUNT AUTOMATED 249 10*3/uL (130-400); RED BLOOD COUNT 4.02 10*6/uL (4.50-5.90); RED CELL DISTRI WIDTH 14.3 % (0-14.5)
[2021-09-21 08:00] VITALS: BP 163/75
[2021-09-21] MEDS ORDERED: PREDNISONE10 MG PO (11:22)
[2021-09-21 12:00] VITALS: BP 148/60
== END 2021-09-21 12:10 | disposition home or self-care (01) | DRG 192 ==
LOC: ED 13:55 → EDHOLD 16:14 → 5E 17:59
PROVIDERS: Emergency Medicine; Student in an Organized Health Care Education/Training Program; ADMIT Student in an Organized Health Care Education/Training Program; ATTEND Student in an Organized Health Care Education/Training Program
DX: J44.1 Chronic obstructive pulmonary disease with (acute) exacerbation (principal); D64.9 Anemia, unspecified; F41.9 Anxiety disorder, unspecified; R00.1 Bradycardia, unspecified; E11.65 Type 2 diabetes mellitus with hyperglycemia; I10 Essential (primary) hypertension; N40.0 Benign prostatic hyperplasia without lower urinary tract symptoms; E03.9 Hypothyroidism, unspecified; Z82.5 Family history of asthma and other chronic lower respiratory diseases; Z82.3 Family history of stroke; Z87.891 Personal history of nicotine dependence; Z88.5 Allergy status to narcotic agent; Z88.8 Allergy status to other drugs, medicaments and biological substances; Z86.73 Personal history of transient ischemic attack (TIA), and cerebral infarction without residual deficits; Z79.51 Long term (current) use of inhaled steroids; Z79.899 Other long term (current) drug therapy; Z79.1 Long term (current) use of non-steroidal anti-inflammatories (NSAID)

== ENCOUNTER 2022-01-15 11:28 | Emergency (ER) | payer MEDICARE ==
[~2022-01-15] VITALS: Ht 170.1 cm; Wt 69.9 kg
[~2022-01-15 11:28] MED LIST changes: +HYSINGLA ER20 MG PO
[2022-01-15 12:08] LABS: BASO % 0.3 % (0.0-1.0); EOS # 0.2 10*3/uL (0.0-0.4); EOS % 3.3 % (1.0-4.0); HEMATOCRIT 40.1 % (42.0-52.0); LYMPH # 1.6 10*3/uL (1.3-4.4); LYMPH % 24.3 % (27.0-41.0); MEAN CELL VOLUME 90.3 fl (80.0-94.0); MEAN CORPUSCULAR HGB CONC 33.2 g/dl (33.0-37.0); MEAN PLATELET VOLUME 10.5 fl (9.6-12.3); MONO # 0.5 10*3/uL (0.1-1.0); MONO % 8.3 % (3.0-9.0); NEUT # 4.1 10*3/uL (2.3-7.9); NEUT % 63.5 % (47.0-73.0); PLATELET COUNT AUTOMATED 149 10*3/uL (130-400); RED BLOOD COUNT 4.44 10*6/uL (4.50-5.90); RED CELL DISTRI WIDTH 13.6 % (0-14.5); WHITE BLOOD COUNT 6.4 10*3/uL (4.8-10.8)
[2022-01-15 12:22] LABS: ALKALINE PHOSPHATASE 97 U/L (45-117); BUN 20 mg/dl (7-24); CHLORIDE 106 mmol/L (98-107); CREATININE 1.14 mg/dL (0.70-1.30); LIPASE 110 U/L (73-393); POTASSIUM 3.7 mmol/L (3.5-5.1); SGOT/AST 32 IU/L (3-35); SGPT/ALT 63 U/L (12-78); SODIUM 139 mmol/L (136-145); TOTAL PROTEIN 6.9 gm/dL (6.4-8.2)
[2022-01-15 12:32] VITALS: BP 122/73
[2022-01-15 12:37] LABS: ACT PARTIAL THROMBO TIME 26.6 SECONDS (20.0-32.1); INTERNATIONAL NORM RATIO 1.1 (2.0-3.5)
== END 2022-01-15 13:49 | disposition left against medical advice (07) ==
LOC: ED 11:28
PROVIDERS: Emergency Medicine
DX: R53.1 Weakness (principal); R53.83 Other fatigue; Z88.8 Allergy status to other drugs, medicaments and biological substances; Z79.899 Other long term (current) drug therapy; Z98.890 Other specified postprocedural states; Z90.89 Acquired absence of other organs; Z87.891 Personal history of nicotine dependence

== ENCOUNTER → 2022-01-20 | Outpatient (CLI) | payer MEDICARE ==
[2022-01-20 14:59] LABS: BASO % 0.2 % (0.0-1.0); EOS # 0.1 10*3/uL (0.0-0.4); EOS % 1.6 % (1.0-4.0); HEMATOCRIT 40.8 % (42.0-52.0); LYMPH # 1.2 10*3/uL (1.3-4.4); LYMPH % 14.3 % (27.0-41.0); MEAN CELL VOLUME 91.7 fl (80.0-94.0); MEAN CORPUSCULAR HGB 30.3 pg (27.0-31.0); MEAN CORPUSCULAR HGB CONC 33.1 g/dl (33.0-37.0); MONO # 0.5 10*3/uL (0.1-1.0); MONO % 5.6 % (3.0-9.0); NEUT # 6.5 10*3/uL (2.3-7.9); NEUT % 78.2 % (47.0-73.0); PLATELET COUNT AUTOMATED 149 10*3/uL (130-400); RED BLOOD COUNT 4.45 10*6/uL (4.50-5.90); RED CELL DISTRI WIDTH 13.7 % (0-14.5); RETICULOCYTE % 1.83 % (0.50-2.50); WHITE BLOOD COUNT 8.3 10*3/uL (4.8-10.8)
[2022-01-20 15:10] LABS: BILIRUBIN Negative (Negative); BLOOD Negative (Negative); CLARITY Clear (Clear); COLOR Yellow (Yellow); GLUCOSE 1+ (Negative); KETONE Trace (Negative); LEUKO ESTERASE Negative (Negative); NITRITE Negative (Negative); PH 5.5 (4.5-8.0); SPECIFIC GRAVITY 1.025 (1.001-1.030); UROBILINOGEN 0.2 E.U./dl (0.0-1.0)
[2022-01-20 15:22] LABS: ALKALINE PHOSPHATASE 100 U/L (45-117); BUN 17 mg/dl (7-24); CHLORIDE 107 mmol/L (98-107); CHOLESTEROL 101 mg/dL (<200); CREATININE 1.19 mg/dL (0.70-1.30); GAMMA GLUTAMYL TRANSPEPTIDASE 18 U/L (15-85); LDL CHOLESTEROL 39 mg/dL (9-159); POTASSIUM 4.1 mmol/L (3.5-5.1); SGOT/AST 26 IU/L (3-35); SGPT/ALT 49 U/L (12-78); SODIUM 140 mmol/L (136-145); T3 UPTAKE 36 % (31-39); THYROXINE (T4) TOTAL 7.6 ug/dl (4.5-12.1); TOTAL PROTEIN 7.1 gm/dL (6.4-8.2); TRIGLYCERIDES 158 mg/dl (<150)
[2022-01-20 15:28] LABS: IRON 49 ug/dL (65-175)
[2022-01-20 15:42] LABS: BACTERIA TRACE; EPITHELIAL CELLS 0-2; WBC 0-2 wbc/hpf (0-5)
== END | disposition home or self-care (01) ==
LOC: LAB 14:27
PROVIDERS: ATTEND Family Medicine
DX: Z12.5 Encounter for screening for malignant neoplasm of prostate (principal); M47.812 Spondylosis without myelopathy or radiculopathy, cervical region; M48.02 Spinal stenosis, cervical region; M25.78 Osteophyte, vertebrae; E78.5 Hyperlipidemia, unspecified; E55.9 Vitamin D deficiency, unspecified; R79.89 Other specified abnormal findings of blood chemistry; R53.83 Other fatigue; R74.8 Abnormal levels of other serum enzymes; E11.9 Type 2 diabetes mellitus without complications

== ENCOUNTER 2022-06-27 18:06 | Emergency (ER) | payer OTHER ==
[~2022-06-27] VITALS: Ht 170.1 cm; Wt 77.1 kg
[2022-06-27 18:48] VITALS: BP 122/53
== END 2022-06-28 02:05 | disposition home or self-care (01) ==
LOC: ED 18:06
DX: S32.2XXA Fracture of coccyx, initial encounter for closed fracture (principal); S09.90XA Unspecified injury of head, initial encounter; S86.812A Strain of other muscle(s) and tendon(s) at lower leg level, left leg, initial encounter; S86.811A Strain of other muscle(s) and tendon(s) at lower leg level, right leg, initial encounter; Z86.73 Personal history of transient ischemic attack (TIA), and cerebral infarction without residual deficits; N40.0 Benign prostatic hyperplasia without lower urinary tract symptoms; I10 Essential (primary) hypertension; F32.A Depression, unspecified; E78.5 Hyperlipidemia, unspecified; F41.9 Anxiety disorder, unspecified; J44.9 Chronic obstructive pulmonary disease, unspecified; E11.9 Type 2 diabetes mellitus without complications; Z88.8 Allergy status to other drugs, medicaments and biological substances; Z88.5 Allergy status to narcotic agent; D64.9 Anemia, unspecified; Z98.890 Other specified postprocedural states; Z87.891 Personal history of nicotine dependence; Z90.89 Acquired absence of other organs; W01.198A Fall on same level from slipping, tripping and stumbling with subsequent striking against other object, initial encounter; Y93.B1 Activity, exercise machines primarily for muscle strengthening; Y92.89 Other specified places as the place of occurrence of the external cause; Y99.8 Other external cause status

== ENCOUNTER 2022-07-14 06:38 | Emergency (ER) | payer OTHER ==
[2022-07-14 06:44] VITALS: BP 108/62
== END 2022-07-14 08:38 | disposition home or self-care (01) ==
LOC: ED 06:38
DX: S80.02XA Contusion of left knee, initial encounter (principal); I10 Essential (primary) hypertension; E11.9 Type 2 diabetes mellitus without complications; J45.909 Unspecified asthma, uncomplicated; F32.A Depression, unspecified; F41.9 Anxiety disorder, unspecified; Z88.5 Allergy status to narcotic agent; Z88.8 Allergy status to other drugs, medicaments and biological substances; Z98.890 Other specified postprocedural states; Z90.89 Acquired absence of other organs; Z87.891 Personal history of nicotine dependence; W19.XXXA Unspecified fall, initial encounter; Y93.89 Activity, other specified; Y92.89 Other specified places as the place of occurrence of the external cause; Y99.8 Other external cause status

== ENCOUNTER 2023-01-10 18:16 | Emergency (ER) | payer OTHER ==
[~2023-01-10] VITALS: Ht 170.1 cm; Wt 74.8 kg
[~2023-01-10 18:16] MED LIST changes: +ATORVASTATIN CA40 M1 PO; +ECOTRIN325 M1 PO; +OZEMPIC1 MG/0.71 SQ; +PREGABALIN50 MG PO
[2023-01-10 18:59] LABS: BASO % 0.3 % (0.0-1.0); EOS # 0.2 10*3/uL (0.0-0.4); EOS % 3.8 % (1.0-4.0); HEMATOCRIT 39.4 % (42.0-52.0); LYMPH # 1.2 10*3/uL (1.3-4.4); LYMPH % 20.4 % (27.0-41.0); MEAN PLATELET VOLUME 10.8 fl (9.6-12.3); MONO # 0.4 10*3/uL (0.1-1.0); MONO % 6.9 % (3.0-9.0); NEUT % 68.4 % (47.0-73.0); PLATELET COUNT AUTOMATED 166 10*3/uL (130-400); RED BLOOD COUNT 4.33 10*6/uL (4.50-5.90); RED CELL DISTRI WIDTH 13.9 % (0-14.5); WHITE BLOOD COUNT 5.8 10*3/uL (4.8-10.8)
[2023-01-10 19:09] LABS: ACT PARTIAL THROMBO TIME 28.1 SECONDS (20.0-32.1); INTERNATIONAL NORM RATIO 1.1 (2.0-3.5)
[2023-01-10 19:26] LABS: ALKALINE PHOSPHATASE 113 U/L (46-116); BUN 17 mg/dl (9-23); CHLORIDE 105 mmol/L (98-107); ETHYL ALCOHOL 3.5 mg/dl (<3); LIPASE 36 U/L (12-53); POTASSIUM 4.4 mmol/L (3.4-5.1); SGPT/ALT 24 U/L (10-49); TOTAL PROTEIN 6.6 gm/dL (6.0-8.0)
[2023-01-10 21:38] LABS: BILIRUBIN Negative (Negative); BLOOD Negative (Negative); CLARITY Clear (Clear); COLOR Yellow (Yellow); GLUCOSE 2+ (Negative); KETONE Negative (Negative); LEUKO ESTERASE Negative (Negative); NITRITE Negative (Negative); SPECIFIC GRAVITY 1.015 (1.001-1.030)
[2023-01-10 21:44] LABS: URINE AMPHETAMINES Negative (1000ng/ml); URINE BARBITURATES Negative (200ng/ml); URINE BENZODIAZEPINES Negative (200ng/ml); URINE CANNABINOIDS (THC) Negative (50ng/ml); URINE COCAINE Negative (300ng/ml); URINE METHADONE Negative (300ng/ml); URINE OPIATES Negative (300ng/ml); URINE PHENCYCLIDINE Negative (25ng/ml)
[2023-01-10 21:58] VITALS: BP 173/93
[2023-01-10 22:14] LABS: RBC 0-2 rbc/hpf (0-2); WBC 0-2 wbc/hpf (0-5)
== END 2023-01-10 21:57 | disposition home or self-care (01) ==
LOC: ED 18:16
PROVIDERS: Internal Medicine
DX: E11.65 Type 2 diabetes mellitus with hyperglycemia (principal); M54.12 Radiculopathy, cervical region; I10 Essential (primary) hypertension; J45.909 Unspecified asthma, uncomplicated; F32.A Depression, unspecified; F41.9 Anxiety disorder, unspecified; E78.5 Hyperlipidemia, unspecified; Z88.5 Allergy status to narcotic agent; Z88.8 Allergy status to other drugs, medicaments and biological substances; Z90.89 Acquired absence of other organs; Z95.5 Presence of coronary angioplasty implant and graft; Z98.890 Other specified postprocedural states; Z87.891 Personal history of nicotine dependence

== ENCOUNTER → 2023-08-24 | Outpatient (CLI) | payer OTHER | END | disposition home or self-care (01) | LOC: RAD 17:11 | PROVIDERS: ATTEND Family Medicine | DX: M19.012 Primary osteoarthritis, left shoulder (principal); M25.712 Osteophyte, left shoulder; I70.0 Atherosclerosis of aorta; M47.819 Spondylosis without myelopathy or radiculopathy, site unspecified ==

== ENCOUNTER → 2023-09-23 | Day surgery (SDC) | payer OTHER ==
[2023-09-16 11:56] LABS: BASO % 0.2 % (0.0-1.0); EOS # 0.3 10*3/uL (0.0-0.4); EOS % 3.9 % (1.0-4.0); HEMATOCRIT 40.1 % (42.0-52.0); LYMPH # 1.6 10*3/uL (1.3-4.4); MEAN CELL VOLUME 90.3 fl (80.0-94.0); MEAN CORPUSCULAR HGB 31.5 pg (27.0-31.0); MEAN CORPUSCULAR HGB CONC 34.9 g/dl (33.0-37.0); MEAN PLATELET VOLUME 9.9 fl (9.6-12.3); MONO # 0.5 10*3/uL (0.1-1.0); MONO % 6.3 % (3.0-9.0); NEUT # 5.8 10*3/uL (2.3-7.9); NEUT % 69.9 % (47.0-73.0); PLATELET COUNT AUTOMATED 178 10*3/uL (130-400); RED BLOOD COUNT 4.44 10*6/uL (4.50-5.90); RED CELL DISTRI WIDTH 13.7 % (0-14.5); WHITE BLOOD COUNT 8.4 10*3/uL (4.8-10.8)
[2023-09-16 11:59] LABS: BILIRUBIN Negative (Negative); BLOOD Negative (Negative); CLARITY Clear (Clear); COLOR Yellow (Yellow); GLUCOSE Negative (Negative); KETONE Negative (Negative); LEUKO ESTERASE Negative (Negative); NITRITE Negative (Negative); PH 5.5 (4.5-8.0); SPECIFIC GRAVITY 1.025 (1.001-1.030)
[2023-09-16 12:15] LABS: BUN 23 mg/dl (9-23); CHLORIDE 100 mmol/L (98-107); POTASSIUM 3.8 mmol/L (3.4-5.1)
[2023-09-16 12:33] LABS: RBC 0-2 rbc/hpf (0-2)
[~2023-09-23] VITALS: Ht 172.7 cm; Wt 73.0 kg
[2023-09-23] VITALS (7 sets, daily range): BP systolic 113–147; BP diastolic 65–76
[~2023-09-23] MED LIST changes: +HYDROCODONE-AC1 EAC2 PO; +Lidocaine Hydrochloride 2% 10 ML AMP IM ONE; +PROPOFOL 200 MG/20 ML VIAL IV ONE; +SODIUM CHLORIDE 0.9% 1,000 ML IV ONE; +SODIUM CHLORIDE IV ONE
== END | disposition home or self-care (01) ==
LOC: SDC 09-13 08:00
PROVIDERS: ATTEND Surgery
DX: K62.5 Hemorrhage of anus and rectum (principal); K64.1 Second degree hemorrhoids; I10 Essential (primary) hypertension; E11.9 Type 2 diabetes mellitus without complications; K21.9 Gastro-esophageal reflux disease without esophagitis; E78.00 Pure hypercholesterolemia, unspecified; F41.9 Anxiety disorder, unspecified; F32.A Depression, unspecified; G47.30 Sleep apnea, unspecified; E03.9 Hypothyroidism, unspecified; J44.9 Chronic obstructive pulmonary disease, unspecified; Z96.652 Presence of left artificial knee joint; Z86.73 Personal history of transient ischemic attack (TIA), and cerebral infarction without residual deficits; Z95.0 Presence of cardiac pacemaker; Z87.891 Personal history of nicotine dependence; Z98.890 Other specified postprocedural states; Z79.890 Hormone replacement therapy; Z79.899 Other long term (current) drug therapy; Z79.84 Long term (current) use of oral hypoglycemic drugs; Z88.8 Allergy status to other drugs, medicaments and biological substances; Z82.3 Family history of stroke

== ENCOUNTER → 2023-10-01 | Outpatient (CLI) | payer OTHER ==
[~2023-10-01] MED LIST changes: -Lidocaine Hydrochloride 2% 10 ML AMP IM ONE; -PROPOFOL 200 MG/20 ML VIAL IV ONE; -SODIUM CHLORIDE 0.9% 1,000 ML IV ONE; -SODIUM CHLORIDE IV ONE
== END ==
LOC: ORTHO 01:07
PROVIDERS: ATTEND Orthopaedic Surgery
DX: M79.89 Other specified soft tissue disorders (principal); Z96.652 Presence of left artificial knee joint

== ENCOUNTER → 2024-04-11 | Outpatient (CLI) | payer OTHER ==
[2024-04-11 13:44] LABS: BASO % 0.2 % (0.0-1.0); EOS # 0.2 10*3/uL (0.0-0.4); EOS % 2.2 % (1.0-4.0); MEAN CELL VOLUME 94.9 fl (80.0-94.0); MEAN CORPUSCULAR HGB 30.6 pg (27.0-31.0); MEAN CORPUSCULAR HGB CONC 32.2 g/dl (33.0-37.0); MEAN PLATELET VOLUME 10.1 fl (9.6-12.3); MONO # 0.5 10*3/uL (0.1-1.0); MONO % 6.6 % (3.0-9.0); NEUT % 74.4 % (47.0-73.0); PLATELET COUNT AUTOMATED 192 10*3/uL (130-400); RED BLOOD COUNT 4.74 10*6/uL (4.50-5.90); RED CELL DISTRI WIDTH 14.2 % (0-14.5); WHITE BLOOD COUNT 8.1 10*3/uL (4.8-10.8)
== END | disposition home or self-care (01) ==
LOC: LAB 13:14
PROVIDERS: ATTEND Orthopaedic Surgery
DX: Z01.818 Encounter for other preprocedural examination (principal); T84.84XA Pain due to internal orthopedic prosthetic devices, implants and grafts, initial encounter; X58.XXXA Exposure to other specified factors, initial encounter; Y93.89 Activity, other specified; Y92.89 Other specified places as the place of occurrence of the external cause; Y99.8 Other external cause status

== ENCOUNTER → 2024-09-25 | Outpatient (CLI) | payer OTHER | END | disposition home or self-care (01) | LOC: US 07:44 | PROVIDERS: ATTEND Urology | DX: K57.30 Diverticulosis of large intestine without perforation or abscess without bleeding (principal); N43.3 Hydrocele, unspecified; N40.0 Benign prostatic hyperplasia without lower urinary tract symptoms; N50.819 Testicular pain, unspecified; M43.17 Spondylolisthesis, lumbosacral region; M48.07 Spinal stenosis, lumbosacral region; I70.0 Atherosclerosis of aorta ==

== ENCOUNTER → 2024-12-01 | Outpatient (CLI) | payer OTHER ==
[2024-12-01 11:39] LABS: BASO # 0.0 10*3/uL (0.0-0.1); BASO % 0.2 % (0.0-1.0); EOS # 0.2 10*3/uL (0.0-0.4); EOS % 3.5 % (1.0-4.0); MEAN CELL VOLUME 87.6 fl (80.0-94.0); MEAN CORPUSCULAR HGB 28.2 pg (27.0-31.0); MEAN PLATELET VOLUME 10.2 fl (9.6-12.3); MONO # 0.4 10*3/uL (0.1-1.0); MONO % 6.7 % (3.0-9.0); NEUT # 4.9 10*3/uL (2.3-7.9); NEUT % 73.7 % (47.0-73.0); NUCLEATED RED BLOOD CELL 0.0 % (0.0-0.0); NUCLEATED RED BLOOD CELL 0.0 10*3/uL (0.0-0.0); PLATELET COUNT AUTOMATED 173 10*3/uL (130-400); RED CELL DISTRI WIDTH 18.1 % (0-14.5)
[2024-12-01 12:02] LABS: BUN 19 mg/dl (9-23); SGPT/ALT 32 U/L (5-49)
== END | disposition home or self-care (01) ==
LOC: CT 11-30 09:00 → NM 11-30 10:00
PROVIDERS: Nurse Practitioner; ATTEND Urology
DX: R91.8 Other nonspecific abnormal finding of lung field (principal); J43.9 Emphysema, unspecified; C61 Malignant neoplasm of prostate; M47.814 Spondylosis without myelopathy or radiculopathy, thoracic region; Z12.5 Encounter for screening for malignant neoplasm of prostate

== ENCOUNTER 2024-12-15 14:54 | Emergency (ER) | payer OTHER ==
[~2024-12-15] VITALS: Ht 167.6 cm; Wt 72.6 kg
[2024-12-15 15:05] VITALS: BP 142/76
[2024-12-15] MEDS ORDERED: Tdap Vaccine 0.5 ML SYR (Adult Vaccine) IM ONE (15:35)
[2024-12-15 15:57] LABS: BASO # 0.0 10*3/uL (0.0-0.1); BASO % 0.2 % (0.0-1.0); EOS # 0.1 10*3/uL (0.0-0.4); EOS % 0.5 % (1.0-4.0); MEAN CELL VOLUME 88.9 fl (80.0-94.0); MEAN CORPUSCULAR HGB 28.6 pg (27.0-31.0); MEAN PLATELET VOLUME 9.8 fl (9.6-12.3); MONO # 0.6 10*3/uL (0.1-1.0); MONO % 4.8 % (3.0-9.0); NEUT # 10.8 10*3/uL (2.3-7.9); NEUT % 89.1 % (47.0-73.0); NUCLEATED RED BLOOD CELL 0.0 % (0.0-0.0); NUCLEATED RED BLOOD CELL 0.0 10*3/uL (0.0-0.0); PLATELET COUNT AUTOMATED 186 10*3/uL (130-400); RED CELL DISTRI WIDTH 17.2 % (0-14.5)
[2024-12-15] MEDS ORDERED: IOHEXOL 300 MG/ML 100 ML VIAL IV ONE (16:05)
[2024-12-15 16:20] LABS: BUN 14 mg/dl (9-23); SGPT/ALT 48 U/L (5-49)
[2024-12-15] MEDS ORDERED: IOHEXOL 300 MG/ML 100 ML VIAL ONE (16:28)
[2024-12-15] MEDS ORDERED: MUPIROCIN 15 GM TUBE T ONE (18:35)
== END 2024-12-15 20:25 | disposition home or self-care (01) ==
LOC: ED 14:54
PROVIDERS: Emergency Medicine
DX: S61.411A Laceration without foreign body of right hand, initial encounter (principal); S80.11XA Contusion of right lower leg, initial encounter; S10.91XA Abrasion of unspecified part of neck, initial encounter; S61.402A Unspecified open wound of left hand, initial encounter; Z91.048 Other nonmedicinal substance allergy status; Z88.6 Allergy status to analgesic agent; Z79.899 Other long term (current) drug therapy; Z98.890 Other specified postprocedural states; Z90.89 Acquired absence of other organs; Z95.0 Presence of cardiac pacemaker; Z87.891 Personal history of nicotine dependence; V27.09XA Other motorcycle driver injured in collision with fixed or stationary object in nontraffic accident, initial encounter; Y93.I9 Activity, other involving external motion; Y92.488 Other paved roadways as the place of occurrence of the external cause; Y99.8 Other external cause status

== ENCOUNTER → 2024-12-20 | Outpatient (CLI) | payer OTHER | END | disposition home or self-care (01) | LOC: ZAZIZ 12-19 14:17 → WOUNDCARE 00:51 | PROVIDERS: ATTEND Nurse Practitioner Family | DX: S41.111A Laceration without foreign body of right upper arm, initial encounter (principal); S51.811A Laceration without foreign body of right forearm, initial encounter; S61.411A Laceration without foreign body of right hand, initial encounter; S81.011A Laceration without foreign body, right knee, initial encounter; S91.011A Laceration without foreign body, right ankle, initial encounter; Z95.0 Presence of cardiac pacemaker; Z98.890 Other specified postprocedural states; X58.XXXA Exposure to other specified factors, initial encounter; Y93.89 Activity, other specified; Y92.89 Other specified places as the place of occurrence of the external cause; Y99.8 Other external cause status ==

== ENCOUNTER → 2024-12-21 | Outpatient (CLI) | payer OTHER | END | disposition home or self-care (01) | LOC: RAD 12:17 | PROVIDERS: ATTEND Nurse Practitioner Family | DX: S80.11XA Contusion of right lower leg, initial encounter (principal); R22.41 Localized swelling, mass and lump, right lower limb; M17.11 Unilateral primary osteoarthritis, right knee; X58.XXXA Exposure to other specified factors, initial encounter; Y93.89 Activity, other specified; Y92.89 Other specified places as the place of occurrence of the external cause; Y99.8 Other external cause status ==

== ENCOUNTER → 2024-12-27 | Outpatient (CLI) | payer OTHER | END | disposition home or self-care (01) | LOC: WOUNDCARE 01:34 | PROVIDERS: ATTEND Nurse Practitioner Family | DX: S61.411D Laceration without foreign body of right hand, subsequent encounter (principal); S81.011D Laceration without foreign body, right knee, subsequent encounter; S91.011D Laceration without foreign body, right ankle, subsequent encounter; S50.811D Abrasion of right forearm, subsequent encounter; S40.811D Abrasion of right upper arm, subsequent encounter; S80.811D Abrasion, right lower leg, subsequent encounter; Z95.0 Presence of cardiac pacemaker; Z87.891 Personal history of nicotine dependence; Z98.890 Other specified postprocedural states; X58.XXXD Exposure to other specified factors, subsequent encounter ==

== ENCOUNTER → 2025-01-03 | Outpatient (CLI) | payer OTHER | END | disposition home or self-care (01) | LOC: WOUNDCARE 02:01 | PROVIDERS: ATTEND Nurse Practitioner Family | DX: S61.411D Laceration without foreign body of right hand, subsequent encounter (principal); S81.011D Laceration without foreign body, right knee, subsequent encounter; S91.011D Laceration without foreign body, right ankle, subsequent encounter; S80.811D Abrasion, right lower leg, subsequent encounter; S40.811D Abrasion of right upper arm, subsequent encounter; S50.811D Abrasion of right forearm, subsequent encounter; Z87.891 Personal history of nicotine dependence; Z98.890 Other specified postprocedural states; X58.XXXD Exposure to other specified factors, subsequent encounter ==

== ENCOUNTER → 2025-01-23 | Outpatient (CLI) | payer OTHER ==
[2025-01-23 13:53] LABS: BASO # 0.0 10*3/uL (0.0-0.1); BASO % 0.2 % (0.0-1.0); EOS # 0.3 10*3/uL (0.0-0.4); EOS % 4.7 % (1.0-4.0); MEAN CELL VOLUME 88.3 fl (80.0-94.0); MEAN CORPUSCULAR HGB 27.9 pg (27.0-31.0); MEAN PLATELET VOLUME 10.1 fl (9.6-12.3); MONO # 0.5 10*3/uL (0.1-1.0); MONO % 7.2 % (3.0-9.0); NEUT # 4.4 10*3/uL (2.3-7.9); NEUT % 68.2 % (47.0-73.0); NUCLEATED RED BLOOD CELL 0.0 % (0.0-0.0); NUCLEATED RED BLOOD CELL 0.0 10*3/uL (0.0-0.0); PLATELET COUNT AUTOMATED 196 10*3/uL (130-400); RED CELL DISTRI WIDTH 14.1 % (0-14.5)
[2025-01-23 14:16] LABS: BUN 24 mg/dl (9-23); SGPT/ALT 26 U/L (5-49)
== END | disposition home or self-care (01) ==
LOC: LAB 13:26
PROVIDERS: ATTEND Urology
DX: C61 Malignant neoplasm of prostate (principal); R53.83 Other fatigue; Z12.5 Encounter for screening for malignant neoplasm of prostate